=== PATIENT | male | born 1975 | race Two or more races ===

== ENCOUNTER 2018-06-12 22:22 | Inpatient (IN) | payer OTHER ==
[~2018-06-12] VITALS: Ht 152.4 cm; Wt 112.2 kg
[2018-06-12] MEDS ORDERED: SODIUM CHLORIDE 0.9% 1,000 ML IV ONE (23:00)
[2018-06-12] MEDS ORDERED: MORPHINE SULFATE 4 MG/ML SYR/VIAL IV ONE (23:00)
[2018-06-12 23:17] LABS: Basophils # (auto) 0.1 uL; Basophils % (auto) 0.5 % (0.0-2.0); Eosinophils # (auto) 0.1 uL; Eosinophils % (auto) 0.7 % (0.0-7.0); Hematocrit 42.2 % (41.0-53.0); Hemoglobin 13.7 g/dL (13.5-17.5); Mean Corpuscular Hemoglobin 28.7 pg (28.0-32.0); Mean Corpuscular Hgb Conc. 32.4 g/dL (32.0-36.0); Mean Corpuscular Volume 88.4 fL (80.0-100.0); Monocytes # (auto) 0.9 uL; Monocytes % (auto) 6.6 % (0.0-12.0); Neutrophils # (auto) 11.8 uL; Neutrophils % (auto) 85.2 % (37.0-80.0); Platelet Count (auto) 264 10^3/uL (140-450); Red Blood Cells 4.77 10^6/uL (4.5-5.90); Red Cell Distribution Width 13.1 % (11.8-14.3); White Blood Cell 13.9 10^3/uL (4.4-10.8)
[2018-06-12 23:33] LABS: Albumin 3.1 g/dL (3.4-5.0); BUN/Creatinine Ratio 13.8; Calcium 8.5 mg/dL (8.5-10.1); Potassium 4.5 mmol/L (3.5-5.1)
[2018-06-12 23:35] LABS: Bilirubin, Total 0.3 mg/dL (0.2-1.0); Total Protein 7.9 g/dL (6.4-8.2)
[2018-06-13] VITALS (7 sets, daily range): BP systolic 124–167; BP diastolic 74–99
[2018-06-13] LABS: Magnesium 1.9 mg/dL (1.6-2.6)
[2018-06-13] MEDS ORDERED: cefTRIAXone 1GM/10ml IVPUSH 10 ML IV ONE ×2 (00:30→18:15)
[2018-06-13] MEDS ORDERED: HYDROmorphone HCL 2 MG/ML VL IV ONE (00:30)
[2018-06-13] MEDS ORDERED: metroNIDAZOLE 500MG/100ML 100 ML IV ONE (00:30)
[2018-06-13] MEDS ORDERED: MORPHINE SULF INJ 2 MG/ML SYRINGE 1ML IV PRN ×2 (00:45→19:45)
[2018-06-13] MEDS ORDERED: NITROGLYCERIN 0.4 MG SL TAB SL PRN (00:45)
[2018-06-13] MEDS: D5W/SOD CHL 0.45% 1,000 ML IV SCH ×3 (01:26→14:50)
[2018-06-13] MEDS ORDERED: LEVOFLOXACIN 500MG 100 ML IV SCH (02:00)
[2018-06-13] MEDS: MORPHINE SULFATE 4 MG/ML SYR/VIAL IV PRN ×3 (03:04→12:00)
[2018-06-13] MEDS: metroNIDAZOLE 500MG/100ML 100 ML IV SCH ×2 (06:24→14:50)
[2018-06-13] MEDS: ONDANSETRON HCL 4 MG/2 ML VIAL IV PRN ×2 (07:59→12:01)
[2018-06-13 10:12] LABS: Basophils # (auto) 0 uL; Basophils % (auto) 0.4 % (0.0-2.0); Eosinophils # (auto) 0 uL; Eosinophils % (auto) 0.2 % (0.0-7.0); Hematocrit 38.4 % (41.0-53.0); Hemoglobin 12.8 g/dL (13.5-17.5); Lymphocytes # (auto) 0.8 uL; Mean Corpuscular Hemoglobin 29.6 pg (28.0-32.0); Mean Corpuscular Hgb Conc. 33.4 g/dL (32.0-36.0); Mean Corpuscular Volume 88.8 fL (80.0-100.0); Monocytes # (auto) 0.9 uL; Monocytes % (auto) 7.8 % (0.0-12.0); Neutrophils # (auto) 10.3 uL; Neutrophils % (auto) 84.6 % (37.0-80.0); Platelet Count (auto) 239 10^3/uL (140-450); Red Blood Cells 4.33 10^6/uL (4.5-5.90); Red Cell Distribution Width 12.9 % (11.8-14.3); White Blood Cell 12.1 10^3/uL (4.4-10.8)
[2018-06-13 10:25] LABS: INR 0.99 (0.9-1.15); Partial Thromboplastin Time 30.1 sec (23.78-33.04); Prothrombin Time 10.6 sec (9.27-12.13)
[2018-06-13 10:42] LABS: Albumin 2.8 g/dL (3.4-5.0); BUN/Creatinine Ratio 8.6; Bilirubin, Total 0.2 mg/dL (0.2-1.0); Calcium 7.8 mg/dL (8.5-10.1); Potassium 3.9 mmol/L (3.5-5.1); Total Protein 7.3 g/dL (6.4-8.2)
[2018-06-13] MEDS ORDERED: ACETAMINOPHEN 325 MG TAB PO PRN ×2 (18:15)
[2018-06-13] MEDS ORDERED: OXYCODONE W/ ACETAMINOPHEN 5/325MG TABLET PO PRN ×2 (19:45)
[2018-06-13] MEDS: D5W/SOD CHL 0.45%/KCL 20MEQ 1,000 ML IV SCH (21:54)
[2018-06-13] MEDS: ENOXAPARIN SOD 40 MG/0.4 ML SYRINGE SC SCH (21:54)
[2018-06-13] MEDS: PANTOPRAZOLE 40 MG TAB PO SCH (21:54)
[2018-06-13] MEDS: PIPERACILLIN-TAZOB 3.375GM 100 ML IV SCH (23:54)
[2018-06-14 00:45] LABS: Urine Bacteria NONE SEEN /hpf (None Seen); Urine Blood Negative /uL (Negative); Urine Specific Gravity 1.005 (1.001-1.035); Urine WBC 1 /hpf (0 - 3)
[2018-06-14 05:30] VITALS: BP 116/61
[2018-06-14] MEDS: PIPERACILLIN-TAZOB 3.375GM 100 ML IV SCH ×4 (06:06→23:51)
[2018-06-14 08:00] VITALS: BP 164/99
[2018-06-14 09:00] VITALS: BP 164/99
[2018-06-14] MEDS ORDERED: cefTRIAXone 1GM/10ml IVPUSH 10 ML IV SCH (09:00)
[2018-06-14] MEDS: D5W/SOD CHL 0.45%/KCL 20MEQ 1,000 ML IV SCH ×2 (09:31→22:46)
[2018-06-14] MEDS: ENOXAPARIN SOD 40 MG/0.4 ML SYRINGE SC SCH (09:47)
[2018-06-14] MEDS: PANTOPRAZOLE 40 MG TAB PO SCH (09:47)
[2018-06-14] MEDS ORDERED: LIDOCAINE 1% (LOCAL ANESTH.) PF 5ml SDV ONE (11:58)
[2018-06-14] MEDS ORDERED: BUPIVACAINE HCL 50 ML ONE (11:59)
[2018-06-14] MEDS ORDERED: SUCCINYLCHOLINE CHLORIDE 20 MG/ML 10ML VIAL IV ONE (12:03)
[2018-06-14] MEDS ORDERED: fentaNYL CITRATE 100 MCG/2 ML VL ONE (12:05)
[2018-06-14] MEDS ORDERED: MEPERIDINE HCL (50 MG/ML) 1 ML VIAL ONE (12:05)
[2018-06-14] MEDS ORDERED: MIDAZOLAM HCL 1MG/1ML-2 ML VIAL ONE (12:05)
[2018-06-14] MEDS ORDERED: HEPARIN SODIUM (PORCINE) 5000 UNITS/ML 1ML VIAL ONE ×3 (12:13→12:50)
[2018-06-14] MEDS ORDERED: HEPARIN 1,000 UNITS/ml 1ML VIAL ONE (12:14)
[2018-06-14 13:00] VITALS: BP 142/92
[2018-06-14] MEDS ORDERED: DEXAMETHASONE SOD PHOS 10MG/1ML VIAL INJ ONE (13:44)
[2018-06-14] MEDS ORDERED: ceFOXitin 2GM/100ML 100 ML IV ONE (14:02)
[2018-06-14] MEDS ORDERED: ROCURONIUM 10MG/ML 10ML VIAL IV ONE (14:45)
[2018-06-14] MEDS ORDERED: GLYCOPYRROLATE 0.2 MG/ML 1ML VIAL ONE (14:47)
[2018-06-14] MEDS ORDERED: NEOSTIGMINE 1 MG/ML INJ (10mg/10ML VIAL) ONE (14:47)
[2018-06-14] MEDS ORDERED: KETOROLAC TROMETH 30 MG/ML 1ML VIAL IV ONE (16:15)
[2018-06-14] MEDS ORDERED: ONDANSETRON HCL 4 MG/2 ML VIAL IV ONE (16:15)
[2018-06-14] MEDS ORDERED: LABETALOL HCL 5 MG/ML 4ML SYRINGE IV PRN (16:15)
[2018-06-14] MEDS ORDERED: HYDROmorphone HCL 2 MG/ML VL IV PRN (16:15)
[2018-06-14] MEDS ORDERED: MIDAZOLAM HCL 1MG/1ML-2 ML VIAL IV PRN (16:15)
[2018-06-14] MEDS ORDERED: METOCLOPRAMIDE HCL 5MG/ml INJ 2ml VIAL IV ONE (16:15)
[2018-06-14] MEDS ORDERED: ePHEDrine SULFATE 50 MG/ML AMP IV PRN (16:15)
[2018-06-14] MEDS ORDERED: MORPHINE SULFATE 4 MG/ML SYR/VIAL IV PRN (16:15)
[2018-06-14] MEDS ORDERED: ACCU-CHEK COMFORT CURVE STRIP VI ONE (16:15)
[2018-06-14] MEDS ORDERED: MORPHINE SULFATE 4 MG/ML SYR/VIAL IV ONE (18:00)
[2018-06-14 20:00] VITALS: BP 123/84
[2018-06-14 23:40] VITALS: BP 136/79
[2018-06-15 05:29] VITALS: BP 122/89
[2018-06-15] MEDS: PIPERACILLIN-TAZOB 3.375GM 100 ML IV SCH ×3 (05:49→18:35)
[2018-06-15 08:00] VITALS: BP 119/77
[2018-06-15 08:36] VITALS: BP 139/95
[2018-06-15 12:50] VITALS: BP 119/77
[2018-06-15] MEDS: PANTOPRAZOLE 40 MG TAB PO SCH (13:42)
[2018-06-15] MEDS: ENOXAPARIN SOD 40 MG/0.4 ML SYRINGE SC SCH (13:42)
[2018-06-15] MEDS: D5W/SOD CHL 0.45%/KCL 20MEQ 1,000 ML IV SCH (15:00)
[2018-06-15 16:29] LABS: Albumin 2.2 g/dL (3.4-5.0); BUN/Creatinine Ratio 20.6; Bilirubin, Total 0.3 mg/dL (0.2-1.0); Potassium 4.3 mmol/L (3.5-5.1); Total Protein 6.8 g/dL (6.4-8.2)
[2018-06-15 16:57] LABS: Basophils # (auto) 0 uL; Basophils % (auto) 0.1 % (0.0-2.0); Eosinophils # (auto) 0 uL; Hemoglobin 11.7 g/dL (13.5-17.5); Lymphocytes % (auto) 4.5 % (10.0-50.0); Mean Corpuscular Hemoglobin 29.8 pg (28.0-32.0); Mean Corpuscular Hgb Conc. 33.5 g/dL (32.0-36.0); Mean Corpuscular Volume 89.1 fL (80.0-100.0); Monocytes # (auto) 0.7 uL; Monocytes % (auto) 2.9 % (0.0-12.0); Neutrophils # (auto) 20.9 uL; Neutrophils % (auto) 92.5 % (37.0-80.0); Platelet Count (auto) 232 10^3/uL (140-450); Red Blood Cells 3.93 10^6/uL (4.5-5.90); Red Cell Distribution Width 13.2 % (11.8-14.3); White Blood Cell 22.6 10^3/uL (4.4-10.8)
[2018-06-15 17:00] VITALS: BP 131/84
[2018-06-15 22:00] VITALS: BP 144/99
[2018-06-16] MEDS: PIPERACILLIN-TAZOB 3.375GM 100 ML IV SCH ×4 (00:16→19:22)
[2018-06-16] MEDS: D5W/SOD CHL 0.45%/KCL 20MEQ 1,000 ML IV SCH (01:05)
[2018-06-16 05:11] VITALS: BP 135/86
[2018-06-16 08:00] VITALS: BP 119/77
[2018-06-16] MEDS ORDERED: SODIUM CHLORIDE 0.9% 1,000 ML IV ONE (08:30)
[2018-06-16 09:00] VITALS: BP 144/94
[2018-06-16 13:00] VITALS: BP 143/93
[2018-06-16 13:29] LABS: Basophils # (auto) 0 uL; Basophils % (auto) 0.1 % (0.0-2.0); Eosinophils # (auto) 0.1 uL; Eosinophils % (auto) 0.4 % (0.0-7.0); Hematocrit 36.1 % (41.0-53.0); Hemoglobin 11.9 g/dL (13.5-17.5); Lymphocytes # (auto) 1.9 uL; Lymphocytes % (auto) 13.3 % (10.0-50.0); Mean Corpuscular Hemoglobin 29.5 pg (28.0-32.0); Mean Corpuscular Hgb Conc. 32.9 g/dL (32.0-36.0); Mean Corpuscular Volume 89.7 fL (80.0-100.0); Monocytes # (auto) 0.7 uL; Monocytes % (auto) 5.1 % (0.0-12.0); Neutrophils # (auto) 11.5 uL; Neutrophils % (auto) 81.1 % (37.0-80.0); Nucleated Red Blood Cells % 0.1 %; Platelet Count (auto) 264 10^3/uL (140-450); Red Blood Cells 4.03 10^6/uL (4.5-5.90); Red Cell Distribution Width 13.2 % (11.8-14.3); White Blood Cell 14.2 10^3/uL (4.4-10.8)
[2018-06-16] MEDS: PANTOPRAZOLE 40 MG TAB PO SCH (13:55)
[2018-06-16 14:03] LABS: Albumin 2.3 g/dL (3.4-5.0); BUN/Creatinine Ratio 22.9; Bilirubin, Total 0.2 mg/dL (0.2-1.0); Calcium 7.9 mg/dL (8.5-10.1); Potassium 3.6 mmol/L (3.5-5.1); Total Protein 6.8 g/dL (6.4-8.2)
[2018-06-16 17:00] VITALS: BP 157/91
[2018-06-16] MEDS ORDERED: ENOXAPARIN SOD 40 MG/0.4 ML SYRINGE SC ONE (18:30)
[2018-06-16 22:00] VITALS: BP 159/87
[2018-06-16] MEDS ORDERED: ENOXAPARIN SOD 40 MG/0.4 ML SYRINGE SC SCH (22:00)
[2018-06-17] MEDS: PIPERACILLIN-TAZOB 3.375GM 100 ML IV SCH ×4 (00:39→17:54)
[2018-06-17 05:00] VITALS: BP 156/107
[2018-06-17 06:12] LABS: Basophils # (auto) 0.1 uL; Basophils % (auto) 0.7 % (0.0-2.0); Eosinophils # (auto) 0.1 uL; Eosinophils % (auto) 1.5 % (0.0-7.0); Hematocrit 34.2 % (41.0-53.0); Hemoglobin 11.5 g/dL (13.5-17.5); Lymphocytes # (auto) 1.6 uL; Lymphocytes % (auto) 16.3 % (10.0-50.0); Mean Corpuscular Hgb Conc. 33.7 g/dL (32.0-36.0); Mean Corpuscular Volume 89.2 fL (80.0-100.0); Monocytes # (auto) 0.9 uL; Monocytes % (auto) 8.7 % (0.0-12.0); Neutrophils # (auto) 7.2 uL; Neutrophils % (auto) 72.8 % (37.0-80.0); Platelet Count (auto) 283 10^3/uL (140-450); Red Blood Cells 3.83 10^6/uL (4.5-5.90); Red Cell Distribution Width 13.2 % (11.8-14.3); White Blood Cell 9.9 10^3/uL (4.4-10.8)
[2018-06-17] MEDS: PANTOPRAZOLE 40 MG TAB PO SCH (08:48)
[2018-06-17] MEDS: amLODIPine BESYLATE 5 MG TAB PO SCH (08:48)
[2018-06-17] MEDS: ENOXAPARIN SOD 40 MG/0.4 ML SYRINGE SC SCH ×2 (08:48→21:13)
[2018-06-17 09:00] VITALS: BP 152/102
[2018-06-17 12:34] VITALS: BP 152/102
[2018-06-17 13:00] VITALS: BP 141/98
[2018-06-17 16:52] VITALS: BP 152/103
[2018-06-17 22:00] VITALS: BP 148/84
[2018-06-18] MEDS: PIPERACILLIN-TAZOB 3.375GM 100 ML IV SCH ×4 (00:10→17:41)
[2018-06-18 05:00] VITALS: BP 144/90
[2018-06-18] MEDS ORDERED: MORPHINE SULF INJ 2 MG/ML SYRINGE 1ML IV PRN (07:45)
[2018-06-18] MEDS ORDERED: OXYCODONE W/ ACETAMINOPHEN 5/325MG TABLET PO PRN ×2 (07:45)
[2018-06-18] MEDS: PANTOPRAZOLE 40 MG TAB PO SCH (08:27)
[2018-06-18] MEDS: ENOXAPARIN SOD 40 MG/0.4 ML SYRINGE SC SCH (08:27)
[2018-06-18] MEDS: amLODIPine BESYLATE 5 MG TAB PO SCH (08:27)
[2018-06-18 09:00] VITALS: BP 132/73
[2018-06-18 13:00] VITALS: BP 149/94
[2018-06-18] MEDS ORDERED: LEVO500T21 PO (16:32)
[2018-06-18] MEDS ORDERED: AML5T PO (16:32)
[2018-06-18 17:00] VITALS: BP 147/84
== END 2018-06-18 19:42 | DRG 854 ==
LOC: ER 22:29 → OVERFLOW 22:30 → EEVIPCON 22:30 → WEST WING 06-13 01:57 → TELE-WESTW 06-14 19:12 → TELE-EAST 06-14 23:30 → EAST 06-15 18:58
PROVIDERS: ADMIT Internal Medicine; ATTEND Internal Medicine
PROC: 0F9 Hepatobiliary System and Pancreas, Drainage (ICD-10-PCS; 2018-06-14)
PROC: 0DNU0ZZ Release Omentum, Open Approach (ICD-10-PCS; 2018-06-14)
PROC: 0WQF0ZZ Repair Abdominal Wall, Open Approach (ICD-10-PCS; 2018-06-14)
PROC: 0FT40ZZ Resection of Gallbladder, Open Approach (ICD-10-PCS; principal; 2018-06-14 14:01)
PROC: 0FJ44ZZ Inspection of Gallbladder, Percutaneous Endoscopic Approach (ICD-10-PCS; 2018-06-14 14:01)
DX: A41.9 Sepsis, unspecified organism (principal); K80.00 Calculus of gallbladder with acute cholecystitis without obstruction; K42.0 Umbilical hernia with obstruction, without gangrene; Z68.42 Body mass index [BMI] 45.0-49.9, adult; E66.01 Morbid (severe) obesity due to excess calories; I10 Essential (primary) hypertension; K57.30 Diverticulosis of large intestine without perforation or abscess without bleeding; K66.0 Peritoneal adhesions (postprocedural) (postinfection); Z53.31 Laparoscopic surgical procedure converted to open procedure
CPT/HCPCS: 36415; 71045; 74018; 74176; 76705; 80053; 81001; 82150; 82962; 83036; 83690; 83735; 83880; 84484; 85025; 85610; 85730; 86850; 86900; 86901; 87040; 87086; 93005; 94761; 96361; 96365; 96375; A6257; J0330; J0694; J0696; J1100; J1956; J2250; J2405; J2543; J3490